=== PATIENT | female | born 2005 | race Caucasian/White ===

== ENCOUNTER 2025-07-30 16:28 | Inpatient (IN) | payer OTHER, SELFPAY ==
[2025-07-30 11:04] VITALS: BP 142/87
--- NOTE | 2025-07-30 11:56 | ED.GENMED ---
History of Present Illness
General
Chief Complaint: Swallowing Problem
Source: patient
Exam Limitations: none
Time Seen by Provider: 07/30/25 11:31
Nursing documentation reviewed up to this point in time: agreed with
History of Present Illness
History of Present Illness:
Patient is a 20-year-old female presents to the ER for evaluation. She reports 10 days ago she started to have difficulty swallowing. She describes having a hard time moving food from her mouth to her throat. Symptoms were intermittent till 7
days ago. At 7 days ago she had consistent problems getting food from her mouth and swallowing into her throat. She also feels that she is having difficulty chewing describing' it is like I cannot member how to do it/' she is able to swallow her
own saliva. She did go to her PCP who ordered Pepcid which she started yesterday and then upper GI which is scheduled for August 14.
This morning she was able to eat eggs but reports it took a very long time to eat
Today she was at work and noticed some neck pain had some difficulty breathing which prompted her to come to the ER. She denies any visual disturbances denies any numbness [place] weakness to upper or lower extremities
she denies any chest pain or difficulty breathing now. She is currently on her menstrual cycle. No control no PE DVT PE history in the past no clotting disorder. No DVT risk factors. She does not smoke.
Phy Exam
General Physical Exam
General Presentation: no apparent distress
General age: appears stated age
General Skin: warm and dry
General Habitus: normal
General Mental: alert
General Hydration: appears well hydrated
Cardiovascular Exam
Cardiovascular Exam: regular rate/rhythm, no murmur and normal peripheral pulses
Pulmonary Exam
Pulmonary Exam: lungs clear and no respiratory distress
Neurological Exam
Neurological Exam: alert, oriented x3, no motor deficits and no sensory deficits
Musculoskeletal Exam
Musculoskeletal Exam: full ROM
Skin Exam
Skin Exam: normal color and warm/dry
Psychiatric Exam
Psychiatric Exam: normal mood/affect
Course
Orders/Labs/Results
Orders:
Orders
07/30/25 12:57
NEUROLOGY CONSULT Urgent
Consulting Provider: Nicole Bennett
Was physician already notified: Yes
07/30/25 14:00
Add On- LAB Routine
Comments:: Please add to today's labs or draw as routine
Tests Added?: TFTS, AChR ab(binding, blocking, modulating), MUSK ab, LRP4 ab
07/30/25 14:18
Electrocardiogram (*1) Stat
Reason for Study: Other
Other Reason for Exam: chest pain
07/30/25 14:29
Complete Blood Count/With Diff Urgent
Comprehensive Metabolic Panel Urgent
DDimer [D-Dimer] Urgent
Direct Bilirubin Urgent
Glycohemoglobin (HgbA1c) Urgent
TSH Reflex To Free T4 Urgent
Troponin I Urgent
07/30/25 Dinner
IDDSI 4 - Pureed
At Your Request: Full Participation
Dysphagia Diet: Gluten Free
07/30/25 15:30
Admit/Transfer Patient As Directed
Co-Sign Provider:
Level of Care: Inpatient admission
Assign to:: Medical/Surgical
Physician / Group: juan
Diagnosis: dysphagia
Reason for Hospitalization: dysphagia
Expected length of stay greater than two midnights?: Yes
ELOS- Estimated Length of Stay in days: 2
I certify the patient meets the requirements for IP care: Yes
Code Status As Directed
Resuscitation Status: Full Code
PRN Pain Medication Management As Directed
May give lesser potent ordered pain med per pt: Yes
preference::
Protocol:: Medication orders for pain may be administered in a
manner that supports deferring to patient preference
when the pt is:
- Requesting an ordered lesser potent pain medication.
Least to most potent pain medications are defined
as: acetaminophen < NSAID < tramadol < opioids
(morphine, oxycodone, hydromorphone).
- Requesting a lesser dose of the same medication IF
ORDERED.
- Requesting a less intrusive route of administration
if both routes are prescribed by the provider (PO <
IV).
07/30/25 15:33
CT Chest PE Study Urgent
Comment:
Reason For Exam: PE, dysphagia
07/30/25 17:26
Insulin Pump [Patient's Own Insulin Pump] See Dose Instructions SC ACHS
07/30/25 17:26
GASTROINTESTINAL CONSULT Routine
Consulting Provider: Austin Wright
Was physician already notified: Yes
Acetylcholine Receptor Bind Ab [S] Urgent
Activity As Directed
Activity Level: As Tolerated
Vital Signs As Directed
Frequency: Per unit guidelines
Speech Therapy Eval & Treat Routine
DX Deep Vein Thrombosis Video Routine
07/30/25 20:00
Heparin 5,000 units SC Q12
07/31/25 05:56
Complete Blood Count/With Diff IN AM
Comprehensive Metabolic Panel IN AM
07/31/25 07:11
MR Brain Without Contrast Routine
Reason For Exam: Dysphagia
OK for patient to be off Cardiac Monitoring for MRI: No
Recent pill cam endoscopy?: No
Abnormal Lab Results
07/30/25 07/30/25
12:06 14:29
RDW 11.2 L %
(11.5-14.5)
Glucose 106 H mg/dl
(70-99)
Hemoglobin A1c 6.5 H %
(4.0-5.6)
POC Glucose 130 H mg/dl
(70-99)
07/30/25 14:29
07/30/25 14:29
Vital Signs
Initial and Last Documented VS:
Initial Vital Signs
Pulse Resp BP Pulse Ox
90 16 142/87 99
07/30/25 11:04 07/30/25 11:04 07/30/25 11:04 07/30/25 11:04
Last Documented Vital Signs
Temp Pulse Resp BP Pulse Ox
98.4 F 68 16 116/75 99
08/01/25 07:15 08/01/25 07:15 08/01/25 07:15 08/01/25 07:15 08/01/25 07:15
MDM/Problems Addressed
MDM/Problems Addressed:
As documented patient is a 18-year-old female who presents for dysphagia. She complains of 10 days of difficulty swallowing. She describes this as having a difficult time getting food from her mouth to her pharynx. She also has some difficulty
chewing. She had some chest pain shortness of breath before she arrived which what prompted her to come to the ER. She presented awake alert no acute distress no chest pain. She is a type I diabetic but no other cardiac risk factors no PE DVT
risk factors. She is non-smoker. She is in no acute distress here in the ER. Lungs are clear she is nontachypneic nontachycardic nonhypoxic. Neuroexam negative. She denies any other neurological complaints denies any numbness tingling weakness
in upper extremities no visual problems.
Case discussed with GI and neuro. Neurology evaluated patient will admit for further workup including brain MRI CT chest lab work including MG antibodies.
At this time pt is stable /tolerating secretions
Chronic conditions affecting care:
type one diabetic.
*Radiology
Radiology exam reviewed: radiology read reviewed
*Pulse Oximetry
SaO2: 99
Oxygen Mode of Delivery: Room air
Patient hypoxic: no
*Critical Care Note
Total Time (30-74mins, 75-104mins- exclusive of procedures): Not Applicable
ED Attending Note
-
Portions of this chart may have been created with voice recognition software.� Occasional wrong word or��sound alike� substitutions may have occurred due to the inherent limitations of voice recognition software.
Discharge Plan
Departure
Patient Disposition: Admit
Date of Disposition: 07/30/25
Time of Disposition: 15:01
Admit to: Med/Surg
Admit to doctor: hospitalist
Presentation/result/management discussed w/ accepting MD/DO: Hospitalist
Patient with high blood pressure during this ER visit?: Yes
Condition: Fair
Covid-19: Not Applicable
Discharge Problem:
Dysphagia
Interventions
Interventions:
*Risk Screen - Suicide Last Done: 07/30/25 11:18
*General Assessment Last Done: 07/30/25 11:18
*Neglect/Abuse Screening Last Done: 07/30/25 11:18
*ED- Fall Risk Assessment Last Done: 07/30/25 11:18
*ED COVID-19 Vaccine History Last Done: 07/30/25 11:18
*Nursing Disposition Last Done: 07/30/25 17:29
ED-EENT Assessment Last Done: 07/30/25 11:18
JG-Duxxae-Inqcfdltod Assessment Last Done: 07/30/25 11:18
ED- Pulmonary Assessment Last Done: 07/30/25 11:18
ED- Neurological Assessment Last Done: 07/30/25 11:18
ED Swallowing Screen Last Done: 07/30/25 11:20
Discharge Date and Time
Discharge Date/Time: 07/30/25 17:29
[2025-07-30 12:07] LABS: Glucose - Point of Care 130 mg/dl (70-99)
[2025-07-30 13:28] VITALS: BP 115/74
--- NOTE | 2025-07-30 13:49 | CON.NEURO ---
Consultation
Order
Date of Consultation: 07/30/25
Requesting Provider: Sherry Resendez CRNP
Reason for Consult: Dysphagia
Neurology Consultation Note.
HPI: This is a 20-year-old woman who presented to [facility] on 07/30/2025 with chest pain and dyspnea..
Ms. Hampton endorses no fluctuating difficulty swallowing that began 10 days ago, primarily affecting solids. By Wednesday, the patient experienced significant difficulty swallowing anything and chewing, as well as moving food from the mouth to the
throat. Since then, the patient has been limited to consuming soft foods. The symptoms occurred gradually, progressed, and then stabilized with the dietary change.
Today, the patient developed new symptoms including throat and neck pain, chest pain, and difficulty breathing, which prompted the ER visit. The patient has also been experiencing headaches after eating, particularly when chewing is required. There
is a slight difficulty swallowing saliva, but it remains manageable. The swallowing issues persist throughout the day without variation between morning and afternoon.
ER VS: 142/8790, afebrile
EKG: Not available
Labs: Glucose�130
PMH: Prematurity, type I DM,
PSH:Achilles tendon procedure
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
FH: Mother�hypothyroid, migraine
All: Omnicef, Augmentin
ROS: General: Positive for difficulty breathing.
HEENT: Positive for difficulty swallowing, throat and neck pain. Negative for vision changes, double vision, droopy eyelids.
Cardiovascular: Positive for chest pain.
Respiratory: Positive for difficulty breathing.
Gastrointestinal: Positive for difficulty swallowing solids, difficulty chewing, difficulty moving food from mouth to throat.
Neurological: Positive for headaches after eating. Negative for seizures, weakness in legs or arms.
General: Well developed. In no acute distress.
Cardio: Regular rate and rhythm without murmur. Extremities are without cyanosis or edema.
Neuro:
Mental Status: Alert, oriented to person, place, and date. Normal attention and recall. Good fund of knowledge. Follows complex requests across the midline. Comprehension, naming, and repetition intact. Immediate and delayed recall 3/3.
Cranial Nerves: Pupils are equally round and reactive to light. EOMs full. Visual olsen full to confrontation. No ptosis. No nystagmus. V1-V3 intact to light touch and pinprick bilaterally, symmetric. Face symmetric. Normal hearing AU. The
palate elevated well. SCMs and traps 5/5. Tongue midline. No dysarthria.
Motor: Normal bulk and tone. No pronator or arm drift. Strength 5/5 throughout. No clonus.
Reflexes: Negative Jaime's bilaterally
Coordination: No dysmetria or tremor.
Gait: deferred
Assessment and Plan:
I. Fluctuating dysphagia to solids. Neuroexam is unremarkable
II.Type I DM
III.
- Aspiration precautions
- Please check TFTs, MG antibodies
- CT chest
- Dysphagia evaluation
- Brain MRI without kendall
- GI consult
- Will follow
I personally reviewed all radiology and labs along with past medical records pertinent to current medical problems. Total time spent in patient care is 60 minutes.
Thank you for allowing us to participate in the care of this patient. We will continue to follow. Please do not hesitate to contact us with any questions or concerns.
Subjective/Objective
Subjective Data
Date of Service: July 30, 2025
Objective Data
Vital Signs
Pulse Resp BP Pulse Ox
85 16 115/74 98
07/30/25 13:28 07/30/25 13:28 07/30/25 13:28 07/30/25 13:28
Patient Allergies
amoxicillin (From Augmentin) Allergy (Verified 07/30/25 11:09)
Unknown
cefdinir (From Omnicef) Allergy (Verified 07/30/25 11:09)
Unknown
clavulanic acid (From Augmentin) Allergy (Verified 07/30/25 11:09)
Unknown
Vital Signs and Labs
-
Vital Signs and Labs:
Vital Signs
Pulse Resp BP Pulse Ox
85 16 115/74 98
07/30/25 13:28 07/30/25 13:28 07/30/25 13:28 07/30/25 13:28
[2025-07-30 15:10] LABS: Hematocrit 43.1 % (37.0-47.0); Hemoglobin 15.1 g/dL (12.0-16.0); Mean Corp Hgb Conc. 35.0 g/dL (33.0-37.0); Mean Corpuscular Volume 83.5 fL (81.0-99.0); Nucleated Red Blood Cells % 0 %; Platelet Count 296 10^3/uL (130-400); Red Cell Dist. Width 11.2 % (11.5-14.5)
[2025-07-30 15:22] LABS: D-Dimer < 0.27 ug/mlFEU (0.00-0.50)
[2025-07-30 15:25] LABS: ALT (SGPT) 20 U/L (0-35); AST (SGOT) 20 U/L (14-36); Albumin 4.7 g/dl (3.5-5.0); Alkaline Phosphatase 64 U/L (38-126); Blood Urea Nitrogen 11 mg/dl (7-17); Calcium 9.9 mg/dl (8.4-10.2); Carbon Dioxide 24 mmol/L (22-30); Chloride 105 mmol/L (98-107); Glucose 106 mg/dl (70-99); Potassium 3.9 mmol/L (3.5-5.1); Sodium 138 mmol/L (135-145); Total Protein 7.6 g/dl (6.3-8.2); eGFR > 60.00
--- NOTE | 2025-07-30 15:34 | HPS.HSE ---
Family Physician
-
Family Physician: Vikash Dee MD
Chief Complaint
-
swallowing difficulty
History of Present Illness
20-year-old female past medical history of type 1 diabetes with insulin pump presenting with trouble swallowing 10 days ago. Symptoms were initially intermittent became persistent 7 days ago with consistent problems swallowing. She also having
difficulty chewing and swallowing solids. She is able to swallow her own saliva. She is able to swallow soft foods.
She has been having shortness of breath with exertion without cough or fevers or chills. Also been having chest tightness related to shortness of breath.
She went to primary care physician who ordered Pepcid and inhaler which she started yesterday and scheduled upper GI for August 14. Pepcid and inhaler has not helped.
This morning she was able to eat eggs but took a long time to eat. Today while at work she noticed some neck pain and had difficulty breathing which prompted her to come to the emergency room. She denies any visual disturbances or numbness or
tingling or weakness of the upper or lower extremities. Denies chest pain or difficulty breathing now.
She has been having some loose stools over the past few days. No vomiting or abdominal pain.
She is currently undergoing her period.
Does not smoke or drink alcohol.
No family history of GI, neurological problems, autoimmune disorders.
Medical History
Past Medical History
Past Medical History: Reports Other (type 1 diabetes with insulin pump)
Past Surgical History: Reports None
Social History
Tobacco: Non-smoker
Alcohol: None
Drug: None
Family History
Family History: Not pertinent
Allergies / Home Medications
Allergies reflects when Allergies were last updated in [employer].
Home Medications with original date entered in [employer]
Allergy/Medication List:
Allergies
Allergy/AdvReac Type Severity Reaction Status Date / Time
amoxicillin (From Augmentin) Allergy Unknown Verified 07/30/25 11:09
cefdinir (From Omnicef) Allergy Unknown Verified 07/30/25 11:09
clavulanic acid (From Allergy Unknown Verified 07/30/25 11:09
Augmentin)
Home Medications
Patient Own Insulin Pump 1 sliding scale dose SC .VIA NOVOLOG 07/30/25
Review of Systems
-
History Source: Patient
A 12 point ROS was completed and negative except as noted: Yes
Constitutional: Reports No Symptoms
EENT: Reports No Symptoms
Respiratory: Reports See HPI
Cardiac: Reports See HPI
Abdomen/GI: Reports See HPI
: Reports No Symptoms
Musculoskeletal: Reports No Symptoms
Skin: Reports No Symptoms
Neurological: Reports No Symptoms
Endocrine: Reports No Symptoms
Hematologic/Lymphatic: Reports No Symptoms
Psych: Reports No Symptoms
Physical Exam
Vital Signs
Vital Signs
Pulse Resp BP Pulse Ox
85 16 115/74 98
07/30/25 13:28 07/30/25 13:28 07/30/25 13:28 07/30/25 13:28
Physical Exam
General: Well Developed, Well Nourished and No Apparent Distress
HEENT: NormoCephalic, Moist mucous membranes and Atraumatic
Respiratory: Clear
Cardiac: S1/S2 and Regular Rhythm; No Murmur or Rub
GI: Soft, Non Tender, Non Distended and Normal Bowel Sounds; No Organomegaly
Rectal: Deferred by Provider
Musculoskeletal: No Clubbing, No Cyanosis and No Edema
Skin: No Rash
Neuro: Nonfocal/grossly intact
Laboratory Results
-
07/30/25 14:29
07/30/25 14:29
Laboratory Results
Total Bilirubin 0.9 mg/dl (0.2-1.3) 07/30/25 14:29
AST 20 U/L (14-36) 07/30/25 14:29
ALT 20 U/L (0-35) 07/30/25 14:29
Alkaline Phosphatase 64 U/L (38-126) 07/30/25 14:29
Data Reviewed
-
Lab Data: Labs Reviewed by me
Old Records: Reviewed
Impression/Plan
-
IMPRESSION:
PLAN:
# Acute dysphagia to solids possibly pharyngeal dysphagia secondary to myasthenia gravis versus esophageal motility disorder
-Seems like pharyngeal dysphagia which would likely be neurological
- Check TSH, myasthenia gravis antibody
- Check CT chest PE pending
-Check MRI brain
-Check speech and swallow evaluate
-Pur�ed diet
- GI consulted for dysphagia workup, likely needs esophagram
# Dyspnea unclear if secondary to weakening of diaphragmatic muscles
- D-dimer, troponin pending
- Check EKG
# Chest tightness
- Unclear if secondary to esophageal dysmotility versus GERD
Type 1 diabetes
- Continue insulin pump
Childhood asthma
Full code
DVT prophylaxis�heparin
Pur�ed diet
[2025-07-30 15:35] LABS: Troponin I < 0.012 ng/ml
--- NOTE | 2025-07-30 15:43 | CON.GI ---
Addendum entered and electronically signed by Austin Wright MD 07/30/25 17:43:
I saw and examined the patient.
The BRUSHER MACHINE or PA's note was reviewed and I agree with the note.
Comment:
This patient is a 20-year-old woman with a history of insulin-dependent diabetes who developed relatively acute oropharyngeal and esophageal dysphagia 10 days ago. She states that is difficult for her to chew and transfer food from her mouth to her
throat and this occurs with solids. This also occurs in her chest and she does feel food moving slow. She has no issue with clears or soft food. She does not have any weight loss or nausea. She did have her thyroid checked which was normal she
does not have any recent travel or sick contacts. She did develop some shortness of breath along with this and did have a CAT scan in the ER of the chest which was normal.
abd: soft nontender
impression:
oropharyngeal dysphagia
esophageal dysphagia
plan:
Very few disorders have both oropharyngeal and esophageal dysphagia and it is relatively uncommon for them both to occur acutely. For now she should have the following
1. Speech evaluation
2. Barium esophagram
3. Imaging of the brain
4. Thyroid studies normal she should have workup for mixed connective tissue disease or other autoimmune disease.
5. If all is negative I would recommend an esophageal manometry which can evaluate both the hypopharynx and the esophagus
6. neuro w/u in progress
Original Note:
Consultation
-
Date/Time Consultation Requested: 07/30/250
Date/Time Consultation Performed: 07/30/25 1545
Requesting Provider: EDA Perry
Performing Provider: EDA Nava, Austin Wright MD
Reason for Consultation: dysphagia
Medical History
Chief Complaint / HPI
Chief Complaint: difficulty chewing and swallowing, chest pain
History of Present Illness:
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 She then
began with shortness of breath worse with activity and presents for evaluation. She states she has been taking soft food such as yogurt and eggs but feeling of soft food and even liquid sitting in chest. She also admits when she does eat slow
eating taking about 30 minutes for meal. She denies any recent travel, antibiotics or sick contacts. She denies any other neurological symptoms with facial weakness, visual problems, double vision, extremity weakness.
From at GI standpoint she admits to feeling of mild GERD with food sitting in chest with recent Pepcid trial without improvement. She otherwise denies wt loss, nausea, vomiting, diarrhea, constiaption or rectal bleeding. No hx GI problems in
past.
Past Medical History
Past Medical History: IDDM (with insulin pump) and Other (elevated testostone levels, )
Past Surgical History: Orthopedic (achilles tendon repair )
Social History
Tobacco: Non-Smoker
Alcohol: None
Drug: None
Living: With Family
Employment: Employed ([employer] )
Family History
Family History: Other (family hx autoimmune thyroid issues, no family hx other GI problems )
Allergies / Home Medications
Allergy/AdvReac Type Severity Reaction Status Date / Time
amoxicillin (From Augmentin) Allergy Unknown Verified 07/30/25 11:09
cefdinir (From Omnicef) Allergy Unknown Verified 07/30/25 11:09
clavulanic acid (From Allergy Unknown Verified 07/30/25 11:09
Augmentin)
�Medication �Instructions �Recorded
Patient Own Insulin Pump 1 sliding scale dose SC .VIA 07/30/25
NOVOLOG
famotidine 40 mg tablet (Pepcid) 40 mg PO DAILY 07/30/25
fluticasone propionate 110 2 puff inhalation R BID 07/30/25
mcg/actuation HFA aerosol inhaler
ibuprofen 200 mg tablet (Advil) 200 mg PO Q6HPRN PRN MILD PAIN 07/30/25
spironolactone 100 mg tablet 100 mg PO HS 07/30/25
Review of Systems
-
History Source: Patient and Family
Constitutional: Reports Fatigue (with shortness of breath with exertion )
EENT: Reports No Symptoms and Tearing
Respiratory: Reports Trouble Breathing
Cardiac: Reports Chest Pain (with feeling of food sitting in chest )
Abdomen/GI: Reports Other (difficulty with chewing and swallowing )
: Reports No Symptoms
Musculoskeletal: Reports No Symptoms
Skin: Reports No Symptoms
Neurological: Reports Headache and Weakness
Endocrine: Reports No Symptoms
Hematologic/Lymphatic: Reports No Symptoms
Vital Signs
Pulse Resp BP Pulse Ox
85 16 115/74 98
07/30/25 13:28 07/30/25 13:28 07/30/25 13:28 07/30/25 13:28
Physical Exam
Exam
General: Well Developed, Well Nourished and No Apparent Distress
HEENT: Normocephalic, Anicteric and Other (no LAD)
Respiratory: Clear
Cardiac: Regular Rhythm
GI: Soft, Non Tender and Non Distended
Musculoskeletal: No Clubbing and No Cyanosis
Skin: Warm and Dry
Neuro: Awake, Alert, AO x 3 and Other (smile symmetrical, no facial drop, no Ptosis)
Psych: Calm
Results
WBC 9.0 10^3/uL (4.8-10.8) 07/30/25 14:29
Hgb 15.1 g/dL (12.0-16.0) 07/30/25 14:
Hct 43.1 % (37.0-47.0) 07/30/25 14:29
MCV 83.5 fL (81.0-99.0) 07/30/25 14:29
Plt Count 296 10^3/uL (130-400) 07/30/25 14:
Absolute Neuts (auto) 5.9 10^3/uL (1.4-6.5) 07/30/25 14:
Sodium 138 mmol/L (135-145) 07/30/25 14:
Potassium 3.9 mmol/L (3.5-5.1) 07/30/25 14:
Chloride 105 mmol/L (98-107) 07/30/25 14:
Carbon Dioxide 24 mmol/L (22-30) 07/30/25 14:
BUN 11 mg/dl (7-17) 07/30/25 14:
Creatinine 0.9 mg/dL (0.6-1.0) 07/30/25 14:
Calcium 9.9 mg/dl (8.4-10.2) 07/30/25 14:
Total Bilirubin 0.9 mg/dl (0.2-1.3) 07/30/25 14:
AST 20 U/L (14-36) 07/30/25 14:
ALT 20 U/L (0-35) 07/30/25 14:
Alkaline Phosphatase 64 U/L (38-126) 07/30/25 14:
Diagnostic Image Results:
07/30- CT chest pending
07/30 MRI brain pending
Prior GI Procedures:
EGD: none
Colonoscopy: none
Assessment / Plan
-
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 She then
began with shortness of breath worse with activity and presents for evaluation. She states she has been taking soft food such as yogurt and eggs but feeling of soft food and even liquid sitting in chest. She also admits when she does eat slow
eating taking about 30 minutes for meal. She denies any recent travel, antibiotics or sick contacts. She denies any other neurological symptoms with facial weakness, visual problems, double vision, extremity weakness.
-acute onset of difficulty chewing and swallowing (pharyngeal) with concern for myasthenia gravis
-chest pain with shortness of breath
other med problem:
-IDDM x 9 years
-elevated testosterone levels on Spironolactone(diagnosed several years ago with dizziness, facial numbness)
-Achilles tendon repair
PLAN:
etiology of dysphagia and decreased mastication related to neurologic disorder vs other
monitor for any further neurologic symptoms with visual problems, weakness etc
plan for MRI brain
CT chest with some chest pain and
s/p neuro eval work up pending
await speech eval
close monitoring of resp status-- reviewed with medical team
discussed with patient and mother pending work up may need temporary DHT for nutrition
add hbg A1C with hx chronic DM
-
-
Thank you for consultation and allowing me to participate in the patient's care. Please call the campus receptionist GI physician during the after hours with any questions or concerns.
[2025-07-30 17:34] VITALS: BP 116/68; BMI 31.8
[2025-07-30] MEDS: PATIENT'S OWN INSULIN PUMP SC ×2 (17:46→22:32)
[2025-07-30 23:17] VITALS: BP 124/58
[2025-07-31 00:25] LABS: HCG, Urine Qualitative Screen Negative
[2025-07-31 06:11] LABS: Hematocrit 43.6 % (37.0-47.0); Hemoglobin 15.1 g/dL (12.0-16.0); Mean Corp Hgb Conc. 34.6 g/dL (33.0-37.0); Mean Corpuscular Volume 84.5 fL (81.0-99.0); Nucleated Red Blood Cells % 0 %; Platelet Count 283 10^3/uL (130-400); Red Cell Dist. Width 11.4 % (11.5-14.5)
[2025-07-31 06:35] LABS: ALT (SGPT) 18 U/L (0-35); AST (SGOT) 18 U/L (14-36); Albumin 4.4 g/dl (3.5-5.0); Alkaline Phosphatase 52 U/L (38-126); Blood Urea Nitrogen 11 mg/dl (7-17); Calcium 9.7 mg/dl (8.4-10.2); Carbon Dioxide 28 mmol/L (22-30); Chloride 103 mmol/L (98-107); Estimated Creatinine Clearance 89 ml/min; Glucose 107 mg/dl (70-99); Potassium 4.4 mmol/L (3.5-5.1); Sodium 140 mmol/L (135-145); Total Protein 7.2 g/dl (6.3-8.2); eGFR > 60.00
[2025-07-31 07:20] VITALS: BP 91/55
[2025-07-31 08:12] LABS: Glucose - Point of Care 101 mg/dl (70-99)
[2025-07-31 08:22] VITALS: BP 91/55
[2025-07-31] MEDS: PATIENT'S OWN INSULIN PUMP SC ×3 (09:29→23:29)
--- NOTE | 2025-07-31 09:30 | W.PN.HOSP.TC ---
Today's Communication/Plan
-
see outlined plan below
Assessment / Plan
Assessment / Plan
Assessment:
Acute dysphagia to solids possibly pharyngeal dysphagia secondary to myasthenia gravis or other neurological condition versus esophageal motility disorder
- TSH normal
- MG antibodies pending. CT chest negative
- autoimmune workup sent
- check MRI brain
- Esophagram
- ST evaluation; for now pureed diet
- appreciate GI and Neuro recs
Dyspnea unclear if secondary to weakening of diaphragmatic muscles
chest tightness
- D. Dimer and trop normal. EKG without ischemia
- not on O2
- monitor
- ? GERD symptoms
Type 1 diabetes
- Continue insulin pump
- HEALTH CARE SANITARY TECHNICIAN consulted
- has CGM in place
Childhood asthma
DVT ppx: SC heparin
Code: Full
Anticipated Discharge: > 48 hours
Subjective/Interval History
-
Date of Service: July 31, 2025
resting comfortably
tolerating pureed last evening
mild SOB but CT negative. not on O2
Objective Data
-
Labs:
Laboratory Results
07/31/25
05:56
WBC 6.5
Hgb 15.1
Hct 43.6
Plt Count 283
Sodium 140
Potassium 4.4
Chloride 103
Carbon Dioxide 28
BUN 11
Creatinine 1.0
Glucose 107 H
Calcium 9.7
Total Bilirubin 0.8
AST 18
ALT 18
Alkaline Phosphatase 52
Vital Signs:
Vital Signs
Temp Pulse Resp BP Pulse Ox
97.6 F 63 16 91/55 98
07/31/25 07:20 07/31/25 07:20 07/31/25 07:20 07/31/25 07:20 07/31/25 07:20
Physical Exam
-
General: No Apparent Distress
HEENT: Normocephalic and Atraumatic
Respiratory: Negative Wheezes
Cardiac: Regular Rhythm and S1/S2
GI: Soft
Genito-urinary: No Costovertebral Tender
Neuro: AO x 3
Psych: Calm
Data Reviewed
-
Total Time Spent with Patient (in minutes): 41
Labs: Labs Reviewed by me
[2025-07-31 09:59] LABS: Glycohemoglobin (HgbA1c) 6.5 % (4.0-5.6)
[2025-07-31 12:05] VITALS: BP 110/76
[2025-07-31 12:08] LABS: Glucose - Point of Care 227 mg/dl (70-99)
[2025-07-31] MEDS: PATIENT'S OWN INSULIN PUMP 9 UNITS SC (12:15)
--- NOTE | 2025-07-31 12:36 | W.PN.GI.CBS2 ---
Addendum entered and electronically signed by Emilia Dunbar Do, MD 07/31/25 16:47:
I saw and examined the patient.
The SLITTING MACHINE OPERATOR HELPER's note was reviewed and I agree with the note.
Comment: Tsering is tolerating all oral liquids. She ate cookie today but after chewing a few times her mouth felt very tired. She has difficulty in her tongue and mouth. Vitals stable. exam NTTP well appearing. OP clear no yeast seen. Labs
reviewed. UGI normal with no issues in esophagus or stomach.
Impression
- She is tolerating liquid and soft diet
- AT this juncture given that UGI with normal esophagus and stomach not sure EGD would add much
- Suspect neurology vs autoimmune process. Await for rest of workup to return
- C/w protonix
At this juncture no other GI recs will sign off please call questions. To follow up with Dr Wright outpatient in GI office.
Original Note:
Today's Communication / Plan
-
etiology of dysphagia and decreased mastication related to neurologic disorder vs other
monitor for any further neurologic symptoms with visual problems, weakness etc
MRI completed results pending
CT chest neg PE
esophagram normal
await neuro input --work up in progress
for speech eval this afternoon
reviewed with Dr. Flores for vital capacity and NIF testing with respiratory - close monitoring of resp status
s/p neuro eval work up pending
await speech eval
pending work up may need temporary DHT for nutrition pending speech eval and symptoms
currently on dysphagia diet
hbg A1C 6.5
Assessment / Plan
-
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 She then
began with shortness of breath worse with activity and presents for evaluation. She states she has been taking soft food such as yogurt and eggs but feeling of soft food and even liquid sitting in chest. She also admits when she does eat slow
eating taking about 30 minutes for meal. She denies any recent travel, antibiotics or sick contacts. She denies any other neurological symptoms with facial weakness, visual problems, double vision, extremity weakness.
07/30 CT chest pe study negative
07/31 esophagram normal
-acute onset of difficulty chewing and swallowing (pharyngeal) with concern for myasthenia gravis
-chest pain with shortness of breath
other med problem:
-IDDM x 9 years
-elevated testosterone levels on Spironolactone(diagnosed several years ago with dizziness, facial numbness)
-Achilles tendon repair
PLAN:
etiology of dysphagia and decreased mastication related to neurologic disorder vs other
monitor for any further neurologic symptoms with visual problems, weakness etc
MRI completed results pending
CT chest neg PE
esophagram normal
await neuro input --work up in progress
for speech eval this afternoon
reviewed with Dr. Flores for vital capacity and NIF testing with respiratory - close monitoring of resp status
s/p neuro eval work up pending
await speech eval
pending work up may need temporary DHT for nutrition pending speech eval and symptoms
currently on dysphagia diet
hbg A1C 6.5
Subjective
Subjective
Date of Service: July 31, 2025
on pureed diet but not eating yet with testing no change in symptoms
Objective
Data Reviewed
Laboratory Data:
Laboratory Results
07/31/25 05:56
07/31/25 05:56
Laboratory Results
Total Bilirubin 0.8 mg/dl (0.2-1.3) 07/31/25 05:56
AST 18 U/L (14-36) 07/31/25 05:56
ALT 18 U/L (0-35) 07/31/25 05:56
Alkaline Phosphatase 52 U/L (38-126) 07/31/25 05:56
Vital Signs and I&O:
Vital Signs
Temp Pulse Resp BP Pulse Ox
98.3 F 73 16 110/76 97
07/31/25 12:05 07/31/25 12:05 07/31/25 12:05 07/31/25 12:05 07/31/25 12:05
Physical Exam
Physical Exam
HEENT: Anicteric and Moist mucous membranes
Cardiology: Normal Sinus Rhythm
Pulmonary: Clear
GI: Soft, Non Distended and Non Tender
Extremities: No Edema
Neuro: Non Focal
[2025-07-31 12:38] LABS: Glucose - Point of Care 206 mg/dl (70-99)
[2025-07-31 13:30] LABS: Glucose - Point of Care 303 mg/dl (70-99)
--- NOTE | 2025-07-31 14:30 | PN.DE.MGMTRT ---
Insulin Management
- -
07/31/2025 Diabetes Management Consult - Insulin Pump
Patient admitted 07/30 with c/o difficulty swallowing which has worsened over the last 10 day, and now has difficulty moving food from mouth to swallow. PMH type 1 diabetes since age 10. Prior to admission was using the OmniPod 5 with DexCom G6 and
Humalog. A1C on admission 6.5%, cr 1, eGFR > 60.
Patient is awake alert and oriented able to discuss diabetes care. States she sees senior analyst market intelligence @ [facility], Dr. Padmini Mathias ongoing for diabetes care. States she has been on a pump 8 years. Pump settings:
Basal CHO ratio Sensitivity
12am 1.2 7 25
8am 1.3 7 25
2pm 1.4 7 25
24 hour basal total 31.4
Will make no change to pump settings.
Discussed with patient fingerstick glucose will be obtained ACHS in addition she may continue to use her OmniPod. Bedside worksheet to be filled out by patient.
Discussed with nurse.
Will follow.
Diabetes History
- -
Type of Diabetes: 1
Pre-Admission Diabetes Regimen
07/30/25 07/31/25
14:29 05:56
Creatinine 0.9 1.0
Lab Results
Hemoglobin A1c 6.5 % (4.0-5.6) H 07/30/25 14:29
Insulin Pump Settings
IP Diabetes Regimen
07/30/25 07/31/25 07/31/25
14:29 05:56 08:09
Glucose 106 H 107 H
POC Glucose 101 H
07/31/25 07/31/25 07/31/25
12:07 12:37 13:29
Glucose
POC Glucose 227 H 206 H 303 H
Meal type: Lunch
Amount consumed: 100%
Patient Education
--- NOTE | 2025-07-31 14:31 | W.PN.NEURO.1 ---
Today's Communication / Plan
-
.
Subjective/Objective
Subjective Data
Date of Service: July 31, 2025
Neurology follow-up note
HPI: Ms. Adams reports that swallowing remains about the same with no improvement but also no worsening since the last visit. The patient continues to eat only soft foods and had lunch prior to the visit without difficulty. The patient denies any
change in vision, strength, or breathing. The patient reports experiencing intermittent lightheadedness
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
A biphasic barium swallow/esophagram examination-normal examination.
PMH: Prematurity, type I DM,
PSH:Achilles tendon procedure
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
FH: Mother�hypothyroid, migraine
All: Omnicef, Augmentin
ROS: General: Positive for lightheadedness.
HEENT: Negative for vision changes, droopy eyelids.
Respiratory: Negative for breathing changes.
Gastrointestinal: No change in swallowing difficulties.
Musculoskeletal: Negative for strength changes.
Neurological: Negative for slurred speech.
General: Well developed. In no acute distress.
Cardio: Regular rate and rhythm without murmur. Extremities are without cyanosis or edema.
Neuro:
Mental Status: Alert, oriented to person, place, and date. Normal attention and recall. Good fund of knowledge. Follows complex requests across the midline. Comprehension, naming, and repetition intact. Immediate and delayed recall 3/3.
Cranial Nerves: Pupils are equally round and reactive to light. EOMs full. Visual olsen full to confrontation. No ptosis. No nystagmus. V1-V3 intact to light touch and pinprick bilaterally, symmetric. Face symmetric. Normal hearing AU. The
palate elevated well. SCMs and traps 5/5. Tongue midline. No dysarthria.
Motor: Normal bulk and tone. No pronator or arm drift. Strength 5/5 throughout. No clonus.
Reflexes: Negative Jaime's bilaterally
Coordination: No dysmetria or tremor.
Gait: deferred
Assessment and Plan:
I. Nonfuctuating dysphagia to solids. Clinically stable
II. Right cerebellar hemisphere signal abnormality. Asymptomatic
III. Type I DM
- Aspiration precautions
- Brain MRI with kendall(can be done as OP)
- GI follow up
- Outpatient neurology follow-up
- Please recall neurology service with any questions or concerns
I personally reviewed all radiology and labs along with past medical records pertinent to current medical problems. Total time spent in patient care is 60 minutes.
Thank you for allowing us to participate in the care of this patient. Please do not hesitate to contact us with any questions or concerns.
Objective Data
Vital Signs
Temp Pulse Resp BP Pulse Ox
36.8 C 73 16 110/76 97
07/31/25 12:05 07/31/25 12:05 07/31/25 12:05 07/31/25 12:05 07/31/25 12:05
Lab Results
07/31/25 05:56
07/31/25 05:56
Sodium 140 mmol/L (135-145) 07/31/25 05:56
Potassium 4.4 mmol/L (3.5-5.1) 07/31/25 05:56
BUN 11 mg/dl (7-17) 07/31/25 05:56
Glucose 107 mg/dl (70-99) H 07/31/25 05:56
Calcium 9.7 mg/dl (8.4-10.2) 07/31/25 05:56
Patient Allergies
amoxicillin (From Augmentin) Allergy (Verified 07/30/25 11:09)
Unknown
cefdinir (From Omnicef) Allergy (Verified 07/30/25 11:09)
Unknown
clavulanic acid (From Augmentin) Allergy (Verified 07/30/25 11:09)
Unknown
Vital Signs and Labs
-
Vital Signs and Labs:
Vital Signs
Temp Pulse Resp BP Pulse Ox
36.8 C 73 16 110/76 97
07/31/25 12:05 07/31/25 12:05 07/31/25 12:05 07/31/25 12:05 07/31/25 12:05
Lab Results
07/31/25 05:56
07/31/25 05:56
Sodium 140 mmol/L (135-145) 07/31/25 05:56
Potassium 4.4 mmol/L (3.5-5.1) 07/31/25 05:56
BUN 11 mg/dl (7-17) 07/31/25 05:56
Glucose 107 mg/dl (70-99) H 07/31/25 05:56
Calcium 9.7 mg/dl (8.4-10.2) 07/31/25 05:56
Medications
-
Medications:
Generic Name Dose Route Start Last Admin
Trade Name Freq PRN Reason Stop Dose Admin
Dextrose 12.5 grams 07/30/25 18:00
Dextrose 50% (0.5 Grams/Ml) 50 Ml Syringe IV 08/27/25 17:59
PRN PRN
HYPOGLYCEMIA
Glucagon 1 mg 07/30/25 18:00
Glucagon 1 Mg Vial IM 08/27/25 17:59
PRN PRN
hypoglycemia
Heparin Sodium 5,000 units 07/30/25 20:00 07/31/25 09:29
Heparin 5,000 Units/Ml 1 Ml Vial SC 08/27/25 19:59 Not Given
Q12 JOHN
Patient Own Medication 0 units 07/30/25 17:26 07/31/25 12:15
Insulin Pump - Patient's Own SC 08/27/25 17:25 9 units
ACHS JOHN Administration
Patient's Own 0 unit 07/30/25 18:00
Novolog (Aspart) SC 08/27/25 17:59
Pump - Prn PRN PRN
BLOOD GLUCOSE
Sodium Chloride 0 flush 07/30/25 18:00
Sodium Chloride 0.9% (Flush) Syringe IV 08/27/25 17:59
PER PROTOCOL JOHN
Home Medications
-
Home Medications
Patient Own Insulin Pump 1 sliding scale dose SC .VIA NOVOLOG Diabetes 07/30/25
famotidine 40 mg tablet (Pepcid) 40 mg PO DAILY Gastrointestinal Issue 07/30/25
fluticasone propionate 110 mcg/actuation HFA aerosol inhaler 2 puff inhalation R BID Lung/Breathing Issues 07/30/25
ibuprofen 200 mg tablet (Advil) 200 mg PO Q6HPRN PRN MILD PAIN 07/30/25
spironolactone 100 mg tablet 100 mg PO HS Fluid Retention/Swelling 07/30/25
[2025-07-31 14:36] LABS: Urine Character Clear (Clear)
[2025-07-31 14:42] LABS: tTG IgA Antibody 3.3 EU/ml (0-19); tTG IgG Antibody 9.5 EU/ml (0-19)
--- NOTE | 2025-07-31 14:56 | CM ---
CM reviewed chart, patient seen bedside, initial assessment completed.
Patient is a 20-year-old female past medical history of type 1 diabetes with insulin pump presenting with trouble swallowing 10 days ago.
Patient resides with her mom, dad, and sister in a multiple story home. Patient is independent with ALDS/IADLS, denies VN/SNF/DME. PCP Vikash Dee, Pharmacy [facility]. Patient unsure if she has prescription coverage, denies insecurities at home.
Patient confirms transportation home upon d/c. CM will continue to follow for all d.c planning needs.
Plan; home no needs.
[2025-07-31 15:02] VITALS: BP 127/76
[2025-07-31 15:03] LABS: Urine Squamous Cell 26-30 /LPF (Few)
[2025-07-31 15:04] LABS: Urine Red Blood Cell 80-90 /HPF (0-2)
[2025-07-31 15:05] LABS: Urine Urothelial Cell 0-2 /LPF (FEW); Urine White Cell 16-20 /HPF (0-5)
--- NOTE | 2025-07-31 15:52 | PTOTSP ---
Dysphagia Evaluation:
Pt presents w/ acute oropharyngeal dysphagia symptoms. Given increased difficulty w/ mastication and swallowing of solids, an instrumental video swallow study is warranted to objectively visualize dysphagia symptoms.
Recommendations:
1. IDDSI 4, Thins
2. Medications as best tolerated.
3. Strategies: Taking breaks w/ fatigue, altnerating sips and bites, small sips/bites
4. Instrumental video swallow study to objectively view dysphagia symptoms.
5. F/U w/ ST pending VSS results.
[2025-07-31] MEDS: MAALOX 30 ML PO (16:13)
[2025-07-31] MEDS: PROTONIX 40 MG PO (16:13)
[2025-07-31 16:37] LABS: Glucose - Point of Care 153 mg/dl (70-99)
[2025-07-31 21:31] LABS: Glucose - Point of Care 214 mg/dl (70-99)
[2025-07-31 23:26] LABS: Glucose - Point of Care 60 mg/dl (70-99)
[2025-07-31 23:41] VITALS: BP 108/72
[2025-07-31 23:43] LABS: Glucose - Point of Care 112 mg/dl (70-99)
[2025-08-01 01:47] LABS: Glucose - Point of Care 189 mg/dl (70-99)
[2025-08-01 03:34] LABS: Glucose - Point of Care 168 mg/dl (70-99)
[2025-08-01 07:15] VITALS: BP 116/75
--- NOTE | 2025-08-01 07:41 | PTCARENOTE ---
07/31: Pt experienced low blood sugar. Glucose rechecked her hypoglycemic protocol. 2324: 60; 2342: 112; 0146: 189; 0333: 168. Pt given juice and applesauce (does not eat crackers, gluten free). Pt presented flushed, anxious, and diaphoretic. Upon
assessment, pt admitted to self adjusting insulin dose by adding a few extra units in attempt to maintain tighter glucose control. Pt educated on importance of adhering strictly to prescribed insulin dosing and following the protcol. Reinforced
risks associated with insulin overdosing, including hypoglycemia. Pt verbalized understanding.
--- NOTE | 2025-08-01 07:50 | PN.DE.MGMTRT ---
Insulin Management
- -
08/01/2025: Diabetes Management follow up for Insulin Pump
Patient admitted 07/30 with c/o difficulty swallowing which has worsened over the last 10 day, and now has difficulty moving food from mouth to swallow. PMH type 1 diabetes since age 10. Prior to admission was using the OmniPod 5 with DexCom G6 and
Humalog. states she sees director internal control @ [facility], Dr. Padmini Mathias ongoing for diabetes care. States she has been on a pump 8 years. A1C on admission 6.5%, cr 1, eGFR > 60.
Patient is awake alert, oriented, sitting up in bed, able to discuss diabetes care.
Noted for an episode of Hypoglycemia last night. Patient states she administered an additional bolus around 10pm when she noticed that her CGM was reading a glucose level of 291. She had just applied a new CGM sensor around dinner time, so it's
possible that her CGM had not fully calibrated, giving a falsely high blood sugar. Instructed pt to request for a finger stick check with the hospital glucose meter to confirm accuracy of blood sugar prior to administering correction bolus dose.
Will make no changes to current pump settings. Will check 3AM blood sugar.
Pump settings:
Basal CHO ratio Sensitivity
12am 1.2 7 25
8am 1.3 7 25
2pm 1.4 7 25
24 hour basal total 31.4
Will make no change to pump settings.
Discussed with patient fingerstick glucose will be obtained ACHS in addition she may continue to use her OmniPod. Bedside worksheet to be filled out by patient.
Discussed with nurse. Will cont to follow.
Diabetes History
- -
Type of Diabetes: 1
Pre-Admission Diabetes Regimen
Lab Results
Hemoglobin A1c 6.5 % (4.0-5.6) H 07/30/25 14:29
Insulin Pump Settings
IP Diabetes Regimen
07/31/25 07/31/25 07/31/25
08:09 12:07 12:37
POC Glucose 101 H 227 H 206 H
07/31/25 07/31/25 07/31/25
13:29 16:35 21:30
POC Glucose 303 H 153 H 214 H
07/31/25 07/31/25 08/01/25
23:24 23:42 01:46
POC Glucose 60 L 112 H 189 H
08/01/25
03:33
POC Glucose 168 H
Meal type: Lunch
Amount consumed: 100%
Patient Education
[2025-08-01 08:54] LABS: Glucose - Point of Care 139 mg/dl (70-99)
[2025-08-01 09:00] LABS: Hematocrit 44.0 % (37.0-47.0); Hemoglobin 15.6 g/dL (12.0-16.0); Mean Corp Hgb Conc. 35.5 g/dL (33.0-37.0); Mean Corpuscular Volume 85.4 fL (81.0-99.0); Platelet Count 252 10^3/uL (130-400); Red Cell Dist. Width 11.2 % (11.5-14.5)
[2025-08-01] MEDS: PROTONIX 40 MG PO (09:54)
[2025-08-01] MEDS: PATIENT'S OWN INSULIN PUMP 3.7 UNITS SC (09:57)
[2025-08-01 10:13] LABS: Blood Urea Nitrogen 11 mg/dl (7-17); Calcium 9.3 mg/dl (8.4-10.2); Carbon Dioxide 26 mmol/L (22-30); Chloride 102 mmol/L (98-107); Estimated Creatinine Clearance 112 ml/min; Glucose 124 mg/dl (70-99); Potassium 4.1 mmol/L (3.5-5.1); Sodium 138 mmol/L (135-145); eGFR > 60.00
--- NOTE | 2025-08-01 10:28 | W.CON.OTO ---
Otolaryngology Consult
Consult
Date/Time Consultation Requested: 07/31/2025 1616
Date/Time Consultation Performed: 08/01/2025 0945
Requesting Provider: Dr. Ameya Flores
Performing Provider: Dr. Kyle Carroll
Reason for Consultation: Dysphagia
Chief Complaint
Dysphagia
History of Present Illness
This is a 20-year-old woman who presented to [facility] on 07/30/2025 with 10 days of acute onset difficulty swallowing. Symptoms were initially intermittent for the first few days marked by inability to begin and initiate swallow but then
progressed to persistent and difficulty with all solids and textures. No issues with secretions or liquids. She recalls feeling worried food regarding ongoing pipe but did not have overt aspiration. Every time she would initiate swallow it was
challenged by inability to propel the bolus down her esophagus and a sensation of feeling stuck in the back of her throat. Foods that did make its way down the esophagus rarely got stuck along the way. No substantial reflux or regurgitation. No
pain during these episodes. No shortness of breath or dyspnea. No voice changes. She has never had any prior head or neck surgery. This has never happened before. No prior family history of swallowing disorders.
She was admitted to the hospital where she has been seen by the gastroenterology and neurology services so far. Workup was started with an MRI brain which did not show any clear etiologies, a modified barium swallow which did not yield any
diagnoses. A provide panel and laboratory tests have been ordered to rule out autoimmune, rheumatologic or neurologic conditions such as scleroderma, mixed connective tissue disorders and myasthenia gravis. These results are still pending.
Medical History
Additional Past Medical History:
insulin-dep diabetes mellitus, remote hx of asthma (recent use of one dose of inhaler)
Past Surgical History: None
Patient Allergies:
Allergies
Allergy/AdvReac Type Severity Reaction Status Date / Time
gluten Allergy Intermediate Vomiting Verified 07/31/25 15:22
amoxicillin (From Augmentin) Allergy Unknown Verified 07/30/25 11:09
cefdinir (From Omnicef) Allergy Unknown Verified 07/30/25 11:09
clavulanic acid (From Allergy Unknown Verified 07/30/25 11:09
Augmentin)
Home Medications / Current Medications:
�Medication �Instructions �Recorded
Patient Own Insulin Pump 1 sliding scale dose SC .VIA 07/30/25
NOVOLOG Diabetes
famotidine 40 mg tablet (Pepcid) 40 mg PO DAILY Gastrointestinal 07/30/25
Issue
fluticasone propionate 110 2 puff inhalation R BID 07/30/25
mcg/actuation HFA aerosol inhaler Lung/Breathing Issues
ibuprofen 200 mg tablet (Advil) 200 mg PO Q6HPRN PRN MILD PAIN 07/30/25
spironolactone 100 mg tablet 100 mg PO HS Fluid 07/30/25
Retention/Swelling
Physical Exam
Vitals / Labs:
Vital Signs
Temp 98.4 F 08/01/25 07:15
Temp route: Oral 08/01/25 07:15
Pulse 68 08/01/25 07:15
Resp Rate 16 08/01/25 07:15
Blood pressure 116/75 08/01/25 07:15
Blood pressure extremity used: Left upper arm 08/01/25 07:15
Position: Lying 08/01/25 07:15
SaO2 99 08/01/25 07:15
Oxygen Mode of Delivery Room air 08/01/25 07:15
Can the patient verbally communicate their pain? Yes 07/31/25 20:00
Actual Weight 81.511 kg 07/30/25 17:34
Body Mass Index (BMI) 31.8 07/30/25 17:34
Lab Results
08/01/25 07:22
08/01/25 07:22
Exam:
Otolaryngology specialty specific physical exam: No acute distress resting comfortably in bed. External ears and nose normal. No trismus, no masses or hypertrophy. Oral cavity and dentition normal and in good condition. No masses or lesions.
Midline rise and fall of the uvula. Symmetric bilateral gag reflex. 1+ tonsils bilaterally. No oral cavity mucosal changes. Neck supple and without masses or lesions. No tenderness over the hyolaryngeal complex. No thyroid or anterior neck
fullness.
Gag reflex prevented proper mirror examination of the larynx and pharynx
Procedure note- Flexible Laryngoscopy
Procedure: Flexible fiberoptic laryngoscopy was performed. Verbal consent was obtained prior to the procedure. No topical anesthesia was used today. The findings of the examination are detailed below. The attending physician performed and
documented the entire procedure. The patient tolerated the procedure well without any complications
Indications: Dysphagia, throat pain
Nasopharynx: normal, no foreign bodies
Oropharynx: no foreign bodies or food boluses
Base of Tongue: normal, no foreign bodies.
Vallecula: normal, no foreign bodies
Posterior pharyngeal chua: normal
Epiglottis: normal.
Post-cricoid: normal.
Arytenoid: normal.
AE Fold: normal.
Pyriform Sinus: normal, no foreign bodies
False Cords: normal.
Ventricles: normal.
Vocal Fold: normal movement bilaterally in adduction and abduction. no mucus or secretions.
Dynamic assessment: Both vocal folds mobile and symmetric
Subglottis: normal.
Remainder: The larynx and hypopharynx were examined as above.
Assessment / Plan
Pharyngeal dysphagia
20-year-old woman with type 1 diabetes who was admitted to the hospital with acute onset primarily pharyngeal dysphagia. Her bedside flexible laryngoscopy did not reveal any anatomical obstructions, food impactions or foreign bodies to explain
symptoms. Her larynx is functioning well and protecting her airway with no visualized aspiration. I have reviewed her chest CT which did not reveal any anatomical obstruction, external compression or anterior neck mediastinal mass.
Plan:
No otolaryngology contraindication to proceed with video swallow with speech.
I am also concerned for autoimmune/rheumatologic versus neurologic process. I agree with lab testing for conditions such as MCTD/scleroderma, MG.
It appears that there is air in the esophagus seen on the CT scan. This may support a need for outpatient manometry as suggested by GI previously if there are contractility issues, although her symptoms do appears mainly pharyngeal.
Please call with questions or concerns. I have left my information with the patient for outpatient follow-up from hospital discharge.
Data Reviewed
CT Scan: Image Personally Visualized and interpreted (CT chest reviewed demonstrated no external or extrinsic compressions or obstructions, of anterior neck or mediastinal masses.)
Lab Data: Labs Reviewed by me (WBC 08/01/25 6.0 suggesting against acute infection; calcium 08/01/25 9.3), Discussed with Physician and Discussed with Nurse
--- NOTE | 2025-08-01 10:49 | W.PN.HOSP.TC ---
Today's Communication/Plan
-
NIF
VSE with diet recs
UTI tx
dispo planning
Assessment / Plan
Assessment / Plan
Assessment:
Acute dysphagia to solids possibly pharyngeal dysphagia secondary to myasthenia gravis or other neurological condition versus esophageal motility disorder
- TSH normal
- MG antibodies pending. CT chest negative. Noted lower VC and MIP. check NIF.
- autoimmune workup sent - pending
- MRI brain without acute pathology. 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 OP MRI with YOEL.
- Esophagram unremarkable. May need OP Evaluation with GI For Manometry.
- ST evaluation; for now pureed diet. VSE pending
- ENT evaluation with NPL negative
- appreciate all consultants.
Dyspnea unclear if secondary to weakening of diaphragmatic muscles
chest tightness
- D. Dimer and trop normal. EKG without ischemia
- not on O2
- monitor
- ? GERD symptoms - empiric PPI
Type 1 diabetes
- Continue insulin pump
- [employer] following
- has CGM in place
Childhood asthma
+UA
- with frequency
- start Rocephin, day 1
DVT ppx: SC heparin
Code: Full
Anticipated Discharge: Within 24 hours
Subjective/Interval History
-
Date of Service: August 01, 2025
resting comfortably
continues to tolerate puree
Objective Data
-
Labs:
Laboratory Results
08/01/25
07:22
WBC 6.0
Hgb 15.6
Hct 44.0
Plt Count 252
Sodium 138
Potassium 4.1
Chloride 102
Carbon Dioxide 26
BUN 11
Creatinine 0.8
Glucose 124 H
Calcium 9.3
Vital Signs:
Vital Signs
Temp Pulse Resp BP Pulse Ox
98.4 F 68 16 116/75 99
08/01/25 07:15 08/01/25 07:15 08/01/25 07:15 08/01/25 07:15 08/01/25 07:15
I&O
07/31/25 08/01/25 08/02/25
06:59 06:59 06:59
Intake Total 1500 / 1500
Balance 1500 / 1500
Physical Exam
-
General: No Apparent Distress
HEENT: Normocephalic and Atraumatic
Cardiac: Regular Rhythm and S1/S2
GI: Soft and Nontender
Genito-urinary: No Costovertebral Tender
Neuro: AO x 3
Hematologic / Lymphatic: No Lymphadenopathy
Psych: Calm
Data Reviewed
-
Total Time Spent with Patient (in minutes): 42
Labs: Labs Reviewed by me
[2025-08-01 11:48] LABS: Glucose - Point of Care 241 mg/dl (70-99)
--- NOTE | 2025-08-01 13:53 | PTOTSP ---
Videofluoroscopic swallow study
Patient presents with WFL-mild oral stage changes, functional pharyngeal swallow, and presence of retention of solids on esophageal screen. Etiology of dysphagia unknown.
Recommend:
1. IDDSI 6 soft/bite sized, thin liquids
2. Medications as best tolerated
3. Strategies: upright to 90 degrees, slow rate, alternate solids/liquids to assist with esophageal clearance, save pureed foods/liquids for end of meal if fatigued, take breaks if fatigued, reflux precautions
4. Brief dysphagia f/u at the acute care level and outpatient follow up pending etiology of symptoms.
[2025-08-01] MEDS: ROCEPHIN 1000 MG IV (13:54)
[2025-08-01 14:26] LABS: Glucose - Point of Care 255 mg/dl (70-99)
[2025-08-01 15:10] VITALS: BP 119/70
[2025-08-01] MEDS: PATIENT'S OWN INSULIN PUMP 6.6 UNITS SC (16:03)
--- NOTE | 2025-08-01 16:10 | W.DCSUMMARY ---
Discharge Summary
Discharge Data
Date of Admission: 07/30/25
Date of Discharge: 08/01/25
-
Pending Results: Yes
Additional Pending Results:
autoimmune and myasthenia gravis workup
Hospital Course
20 y/o F presented on 07/30 with solid foods dysphagia. She was seen by ENT, GI and Neurology. A bedside NPL was negative. an Esophagram was negative. MRI brain only showed Right cerebellar hemisphere signal abnormality (venous anomaly vs asymmetric
prominence of a subarachnoid cistern) for which an MRI with contrast was recommended for outpatient. Autoimmune workup and myasthenia gravis workup is pending. She was evaluated by speech therapy with a video swallow test and recommended IDDSI 6
diet plus outpatient therapy. She will follow up with GI for manometry and with PCP for results of pending testing. She was discharged home 08/01.
Discharge Plan
-
Patient Disposition: Home (Routine Discharge)
Discharge Diagnosis/Procedures: dysphagia
Condition: Fair
Additional Diets: IDDSI 6 diet. If fatigue, can downgrade to puree diet
Activity: As tolerated
Bathing Restrictions: None
Others Tests: MRI brain with contrast - PCP will order. This is to follow up on MRI brain (in hospital, performed without contrast) which showed enlarged venous anomaly vs asymmetric prominence of a subarachnoid cistern
Other Services: ST
Referrals:
Austin Wright MD [Active, Gastroenterology]
Referral Note: call this office to setup esophageal manometry study
Vikash Dee MD [Family Provider, Family Practice] - in one week
Prescriptions:
New
pantoprazole 40 mg Tablet,Delayed Release (Dr/Ec)
40 mg PO DAILY Qty: 30 0RF
Continued
Patient Own Insulin Pump
1 sliding scale dose SC .VIA NOVOLOG
spironolactone 100 mg Tablet
100 mg PO HS
ibuprofen [Advil] 200 mg Tablet
200 mg PO Q6HPRN PRN (Reason: MILD PAIN)
fluticasone propionate 110 mcg/actuation Hfa Aerosol Inhaler
2 puff INHALATION R BID
Discontinued
famotidine [Pepcid] 40 mg Tablet
40 mg PO DAILY
Discharge Orders:
Discharge Patient (As Directed); Ordered 08/01/25
Ordered By: Ameya Flores
Discharge Date and Time
Print Language: FAROESE
[2025-08-02 01:46] LABS: ANA, IgG Reflex to HEp-2 None Detected (None Detected)
[2025-08-02 01:49] LABS: MuSK IgG Ab CBA IFA, Serum <1:10 (<1:10)
[2025-08-02 01:55] LABS: SSA 52 (Ro)(ENA) Ab, IgG 1 AU/mL (0-40); SSA 60 (Ro)(ENA) Ab, IgG 1 AU/mL (0-40); SSB (La)(ENA) Ab, IgG 0 AU/mL (0-40)
[2025-08-02 03:07] LABS: CCP Antibody IgG/IgA 2 Units (0-19)
[2025-08-02 06:59] LABS: Arsenic, Blood <10.0 ug/L (<=12.0); Lead - Venous <2.0 ug/dL (<=3.4); Mercury, Blood <2.5 ug/L (<=10.0)
[2025-08-02 08:54] LABS: Serine Protease-3, IgG 1 AU/mL (0-19)
[2025-08-02 15:10] LABS: Rheumatoid Agglutinin Less Than 10 IU (<10 IU)
== END 2025-08-01 17:03 | disposition home or self-care (01) | DRG 57 ==
LOC: 4 WEST ACU 16:28
PROVIDERS: Nurse Practitioner; ADMITTING PHYSICIAN Hospitalist; ATTENDING PHYSICIAN Internal Medicine; CONSULT PHYSICIAN Internal Medicine; CONSULT PHYSICIAN Psychiatry & Neurology Neurology; CONSULT PHYSICIAN Student in an Organized Health Care Education/Training Program; EMERGENCY PHYSICIAN Emergency Medicine; FAMILY PHYSICIAN Family Medicine
DX: G70.00 Myasthenia gravis without (acute) exacerbation (principal); R13.13 Dysphagia, pharyngeal phase; R13.12 Dysphagia, oropharyngeal phase; E10.9 Type 1 diabetes mellitus without complications; J45.909 Unspecified asthma, uncomplicated; K21.9 Gastro-esophageal reflux disease without esophagitis; M54.2 Cervicalgia; Z96.41 Presence of insulin pump (external) (internal); Z79.4 Long term (current) use of insulin; Z88.1 Allergy status to other antibiotic agents; Z88.0 Allergy status to penicillin
CPT/HCPCS: 70551; 71275; 74221; 74230; 80048; 80053; 81003; 81015; 81025; 82164; 82175; 82248; 82784; 82962; 83036; 83516; 83655; 83825; 84443; 84484; 85025; 85027; 85379; 85652; 86038; 86041; 86160; 86200; 86231; 86235; 86366; 86430; 87086; 92610; 92611; 93005; 99285; Q9967

== ENCOUNTER → 2025-10-03 10:04 | Outpatient (REF) | payer OTHER, SELFPAY | LOC: RST 10:04 | PROVIDERS: ATTENDING PHYSICIAN Student in an Organized Health Care Education/Training Program | DX: R13.13 Dysphagia, pharyngeal phase (principal) | CPT/HCPCS: 74230; 92611 ==

== ENCOUNTER 2025-10-08 06:37 | Outpatient (RCR) | payer OTHER, SELFPAY | END 2025-10-08 23:59 | disposition home or self-care (01) | LOC: RST 06:37 | PROVIDERS: ATTENDING PHYSICIAN Student in an Organized Health Care Education/Training Program | DX: R13.13 Dysphagia, pharyngeal phase (principal); J38.01 Paralysis of vocal cords and larynx, unilateral; R13.11 Dysphagia, oral phase | CPT/HCPCS: 92610 ==